=== PATIENT | male | born 1965 | race Caucasian/White ===

== ENCOUNTER 2018-04-11 17:50 | Emergency (ER) | payer OTHER ==
[2018-04-11 18:23] VITALS: BP 144/95
--- NOTE | 2018-04-11 19:40 | UC ---
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 Describes pain as a constant ache that worsens and becomes more sharp with movement particularly twisting and bending. Non-radiating. Has taken ibuprofen and used heat with good relief from pain. Denies fever, chills, abdominal pain, flank pain, dysuria , frequency, urgency, hematuria, extremity weakness, numbness, tingling, or loss of bowel or bladder control. - History of Current Complaint Chief Complaint: UCBackPain Stated Complaint: WC-BACK INJURY Time Seen by Provider: 04/11/18 19:10 Hx Obtained From: Patient Onset/Duration: Sudden Onset Timing: Constant Severity Currently: Moderate Pain Intensity: 8 Character: Sharp, Aching Aggravating Factor(s): Movement, Bending Alleviating Factor(s): Heat, OTC Meds Associated Signs And Symptoms: Negative: Fever, Weakness, Numbness, Tingling, Abdominal Pain, Flank Pain, Bladder Incontinence, Bowel Incontinence Related History: Occupational Injury - Allergies/Home Medications Allergies/Adverse Reactions: Allergies Allergy/AdvReac Type Severity Reaction Status Date / Time silver sulfadiazine Allergy Rash Verified 04/11/18 18:16 [From Silvadene] Sulfa (Sulfonamide Allergy Rash Verified 04/11/18 18:16 Antibiotics) PMH/Surg Hx/FS Hx/Imm Hx Previously Healthy: Yes - Denies significant PMH - Surgical History Surgical History: Yes Surgery Procedure, Year, and Place: TONSILLECTOMY - Family History Family History: Noncontributory - Social History Occupation: Employed Full-time Lives: With Family Alcohol Use: None Alcohol Amount: SOBER FOR 7 YEARS Substance Use Type: None Smoking Status (MU): Never Smoked Tobacco Review of Systems Constitutional: Negative Skin: Negative Respiratory: Negative Cardiovascular: Negative Gastrointestinal: Negative Genitourinary: Negative Musculoskeletal: Other: - See HPI Is Patient Immunocompromised?: No All Other Systems Reviewed And Are Negative: Yes Physical Exam Triage Information Reviewed: Yes Appearance: Well-Appearing, No Pain Distress, Well-Nourished Vital Signs: Initial Vital Signs Temp 98.0 F 04/11/18 18:13 Pulse 67 04/11/18 18:13 Resp 15 04/11/18 18:13 BP 144/95 04/11/18 18:13 Pulse Ox 100 04/11/18 18:13 Vital Signs Reviewed: Yes Respiratory: Positive: Lungs clear, Normal breath sounds, No respiratory distress Cardiovascular: Positive: RRR, No Murmur Abdomen Description: Positive: Nontender, No Organomegaly, Soft. Negative: CVA Tenderness (R), CVA Tenderness (L), Distended, Guarding Musculoskeletal: Positive: Strength Intact, Other: - No midline spinal tenderness. Tenderness with palpation to left lumbar back without spasm. Neurological: Positive: Alert, Muscle Tone Normal, Other: - Sensation intact. Gait steady. Lower extremity DTRs 2+. Skin Exam: Normal Back Pain Course/Dx - Differential Dx/Diagnosis Provider Diagnoses: acute low back pain, elevated blood pressure reading Discharge - Sign-Out/Discharge Documenting (check all that apply): Patient Departure All imaging exams completed and their final reports reviewed: No Studies - Discharge Plan Condition: Stable Disposition: HOME Prescriptions: Cyclobenzaprine TAB* [Flexeril 10 MG TAB*] 10 mg PO TID PRN #15 tab PRN Reason: Spasms - Back Naproxen [Naproxen 500 mg tab] 500 mg PO BID #30 tablet Patient Education Materials: Low Back Strain (ED) Referrals: Leonardo Garcia MD [Primary Care Provider] - 7 Days (If no improvement in symptoms) Additional Instructions: Take naproxen 1 tab every 12 hours with food for next 7 days. After 7 days, may take every 12 hours as needed for pain. Use cyclobenzaprine 10 mg 1 tab every 8 hours as needed for severe pain or spasm. This will cause drowsiness so do not take and drive or operate machinery. Use warm moist heat to affected area for 15-20 minutes 4 times a day. Follow up with primary care provider in 7 days is symptoms persist. Your blood pressure was elevated in the clinic today. It is recommend that you follow up with your primary care provider within 4 weeks to have this rechecked. Seek immediate medical attention in the emergency room if you have fever greater than 100.5 F, have numbness, tingling, or weakness of the legs, lose control of your bowel or bladder, or have any worsening of symptoms. - Billing Disposition and Condition Condition: STABLE Disposition: Home
== END 2018-04-11 19:58 | disposition home or self-care (01) ==
LOC: UCCORT 17:50
DX: M54.5 Low back pain (principal); R03.0 Elevated blood-pressure reading, without diagnosis of hypertension; Z88.2 Allergy status to sulfonamides
CPT/HCPCS: 99202; G0463